=== PATIENT | male | born 1980 | race Hispanic/Latino ===

== ENCOUNTER → 2024-06-17 11:51 | Outpatient (REF) | payer OTHER, SELFPAY ==
[2024-06-17 13:59] LABS: Urine Albumin Negative (Neg - Trace); Urine Bilirubin Negative (Negative); Urine Character Clear (Clear); Urine Color Yellow; Urine Glucose Negative (Negative); Urine Ketone Negative (Negative); Urine Leukocyte Negative (Negative); Urine Nitrite Negative (Negative); Urine Occult Blood Negative (Negative); Urine Urobilinogen Negative (Neg - 1+)
== END ==
LOC: CLINIC 11:51
PROVIDERS: ATTENDING PHYSICIAN Student in an Organized Health Care Education/Training Program
DX: R82.998 Other abnormal findings in urine (principal)
CPT/HCPCS: 81003

== ENCOUNTER → 2024-07-22 07:36 | Outpatient (REF) | payer OTHER, SELFPAY | LOC: CLINIC 07:36 | PROVIDERS: ATTENDING PHYSICIAN Student in an Organized Health Care Education/Training Program | DX: R82.998 Other abnormal findings in urine (principal) | CPT/HCPCS: 76770 ==

== ENCOUNTER → 2024-08-18 12:08 | Outpatient (REF) | payer OTHER, SELFPAY | LOC: RAD 12:08 | PROVIDERS: ATTENDING PHYSICIAN Student in an Organized Health Care Education/Training Program | DX: S69.92XA Unspecified injury of left wrist, hand and finger(s), initial encounter (principal) | CPT/HCPCS: 73140 ==